=== PATIENT | female | born 1975 | race African-American/Black ===

== ENCOUNTER 2018-08-01 10:53 | Observation (INO) | payer BC, OTHER ==
[2018-08-01 11:33] LABS: #Basophils 0.1 thou/uL (0.0-0.2); #Eosinphils 0.1 thou/uL (0.0-0.7); #Lymphocytes 2.1 thou/uL (1.20-3.40); #Monocytes 0.7 thou/uL (0.11-0.59); #Neutrophils 4.2 thou/uL (1.40-6.50); %Eosinophils 1.8 % (0.0-10.0); %Lymphocytes 29.2 % (21.0-51.0); %Monocytes 9.3 % (0.0-10.0); %Neutrophils 58.7 % (42.0-75.0); Hemoglobin 13.8 g/dL (12.0-16.0); Mean Corpuscular HGB CONC 31.5 g/dL (32.0-36.0); Mean Corpuscular Volume 79.5 fL (78.0-98.0); Mean Platelet Volume 9.1 fL (7.4-10.4); Platelet Count 275 thou/uL (130-400); RBC Distribution Width 11.5 % (11.5-14.5); Red Blood Cell (RBC) Count 5.51 mill/uL (4.20-5.40); White Blood Cell (WBC) Count 7.2 thou/uL (4.8-10.8)
[2018-08-01 12:02] LABS: CKMB 0.6 ng/mL (0-6.6); Troponin I Less than 0.010 ng/mL (< 0.028)
--- NOTE | 2018-08-01 12:22 | RAD ---
PORTABLE CHEST 1 VIEW: Date: 08/01/18 Time: 1203 hours HISTORY: Chest pain, shortness of breath, and fatigue. FINDINGS: The heart size is normal. There is elevation of the left hemidiaphragm. No focal areas of consolidati on, pneumothoraces, or pleural effusions are seen. IMPRESSION: No radiographic evidence of acute cardiopulmonary process. POS: [facility]
[2018-08-01 13:12] LABS: Albumin 4.2 g/dL (3.5-5.0)
[2018-08-01 13:13] LABS: Chloride 102 mmol/L (98-107); Potassium 4.5 mmol/L (3.5-5.1)
[2018-08-01 13:14] LABS: Calcium 9.8 mg/dL (7.8-10.44); Sodium 134 mmol/L (136-145)
[2018-08-01 13:15] LABS: Globulin 3.9 g/dL (2.4-3.5); Glucose 271 mg/dL (70-105); Protein, Total 8.1 g/dL (6.0-8.3)
[2018-08-01 13:16] LABS: Anion Gap 13 mmol/L (10-20); Carbon Dioxide 24 mmol/L (22-29)
[2018-08-01 13:17] LABS: Alkaline Phosphatase 89 U/L (40-150); Bilirubin, Total 0.7 mg/dL (0.2-1.2)
[2018-08-01 13:18] LABS: Calc. Creatinine Clearance 0 mL/min (70-130); Estimated GFR-MDRD 90
[2018-08-01 13:19] LABS: BUN (Urea Nitrogen) 10 mg/dL (7.0-18.7)
[2018-08-01 13:20] LABS: AST (SGOT) 13 U/L (5-34)
[2018-08-01 13:21] LABS: ALT (SGPT) 15 U/L (8-55); CK (CPK) 78 U/L (29-168)
[2018-08-01 15:01] LABS: Troponin I Less than 0.010 ng/mL (< 0.028)
[2018-08-01] MEDS ORDERED: Insulin Glargine 15 UNITS in Pre-Filled Syringe 1 EACH SC SCH (16:08)
[2018-08-01] MEDS ORDERED: Dextrose 5% in Water 1,000 ML IV PRN (16:08)
[2018-08-01] MEDS ORDERED: HumaLOG 300 UNITS/3 ML VIAL SC PRN ×2 (16:08)
[2018-08-01] MEDS ORDERED: Dextrose 50% Abboject 50 ML SYRINGE SLOW IVP PRN (16:08)
[2018-08-01] MEDS ORDERED: Acetaminophen 325 MG TAB PO PRN (16:08)
[2018-08-01] MEDS ORDERED: Nitroglycerin 0.4 MG TAB (25 Tab Bottle) PO PRN (16:08)
[2018-08-01] MEDS ORDERED: Guaifenesin DM 100-10/5 ML UDCUP PO PRN (16:08)
[2018-08-01 16:32] LABS: Hemoglobin A1c 8.9 % (4.0-6.0)
[2018-08-01 16:35] LABS: Iron 123 ug/dL (50-170); Iron Binding Capacity, Total 395 mcg/dL (265-497)
[2018-08-01 17:52] VITALS: BMI 27.1
[2018-08-01 18:21] LABS: Pregnancy Test - Urine (BHCG) Negative (Negative); Pregu Control Background? CLEAR/WHITE (CLR/WHITE); Pregu Control Bar Appear? YES (CONTROL BAR); Specific Gravity 1.015 (1.002-1.036)
[2018-08-01 18:50] LABS: Troponin I Less than 0.010 ng/mL (< 0.028)
--- NOTE | 2018-08-01 20:49 | HP ---
REASON FOR ADMISSION: Chest pain, upper respiratory infection, uncontrolled diabetes. HISTORY OF PRESENT ILLNESS: The patient gives history of chest pain which was left-sided off and on from last 2 days. This has been coming on irrespective of exertion. She has had radiation of this pain to left upper extremity. Each episode of chest pain last 15-20 minutes and goes away by itself. The patient has shortness of breath associated with these chest pains. Two weeks back, patient had upper respiratory infection and from then has been feeling very fatigued. No complaints of cough or expectoration as such. PAST MEDICAL/SURGICAL HISTORY: Diabetes mellitus type 2 from last 5 years, dyslipidemia, has had fibroids removed in the past. CURRENT MEDICATIONS: Glimepiride 8 mg daily, pravastatin 20 mg daily. ALLERGIES: AMOXICILLIN. The patient is just intolerant to metformin not allergic. PERSONAL HISTORY: Does not abuse alcohol or drugs. No history of smoking. FAMILY HISTORY: Both parents are living and both have diabetes. REVIEW OF SYSTEMS: The following complete review of systems was negative, unless otherwise mentioned in the HPI or below: Constitutional: Weight loss or gain, ability to conduct usual activities. Skin: Rash, itching. Eyes: Double vision, pain. ENT/Mouth: Nose bleeding, neck stiffness, pain, tenderness. Cardiovascular: Palpitations, dyspnea on exertion, orthopnea. Respiratory: Shortness of breath, wheezing, cough, hemoptysis, fever or night sweats. Gastrointestinal: Poor appetite, abdominal pain, heartburn, nausea, vomiting, constipation, or diarrhea. Genitourinary: Urgency, frequency, dysuria, nocturia. Musculoskeletal: Pain, swelling. Neurologic/Psychiatric: Anxiety, depression. Allergy/Immunologic: Skin rash, bleeding tendency. CODE STATUS: FULL. PHYSICAL EXAMINATION: GENERAL: The patient is a 42-year-old female who is currently not in any acute distress. VITAL SIGNS: Blood pressure 160/94, pulse is 98 per minute, respiratory rate is 20 per minute, temperature 97.6 degrees Fahrenheit, saturating 97% on room air. NECK: Supple, no elevated JVD. HEENT: Extraocular muscles intact. Pupils reacting to light. Oral cavity mucous membranes are moist. No exudates or congestion. CARDIOVASCULAR: S1, S2 heard. Regular rhythm. RESPIRATORY: Air entry 1+ bilateral. Scattered rhonchi plus no rales or wheezes. ABDOMEN: Soft, bowel sounds heard. No tenderness, rigidity or guarding. EXTREMITIES: No peripheral edema or calf tenderness. VASCULAR SYSTEM: Peripheral pulses 2+ bilateral, no ischemic ulcerations or gangrene. CENTRAL NERVOUS SYSTEM: No gross focal deficits noted. Patient is alert, awake , oriented well. PSYCHIATRIC: The patient's mood is euthymic. No hallucinations or delusions. LABORATORY AND X-RAY FINDINGS: White count of 7, H and H 13 and 43, platelet count 275, MCV 79, BUN is 10, creatinine 0.8, serum glucose 271. Troponin x2 is negative. Albumin is 4.2. Chest x-ray done shows no acute cardiopulmonary abnormalities. EKG done shows low voltage, normal sinus rhythm at 97 beats per minute. CLINICAL IMPRESSION AND PLAN: The patient will be under observation on telemetry for chest pain, rule out acute coronary syndrome. Two sets of cardiac enzymes have been negative. She will be on acute coronary syndrome evidence based protocol and will obtain a nuclear stress test in the morning. Her diabetes is uncontrolled. The patient has been using only glimepiride and takes metformin on an as needed basis. We will give her 15 units of Lantus one dose now and see how she maintains her sugar and fingerstick glucose in the morning. We will place her on full dose aspirin, lisinopril 5 mg daily in view of her current blood pressures and for renal protection in view of her diabetes. We will continue her Pravachol. test will be obtained. The patient has low MCV and we will obtain ferritin levels. Albuterol nebulizer q.6 hours, Mucinex and Tessalon likely due to a post-viral syndrome with shortness of breath and fatigue. X-ray does not show any signs of pericardial effusion. Nevertheless, we will obtain echo with Doppler in view of her worsening fatigue, shortness of breath. 2 weeks upper respiratory infection to rule out pericarditis versus pericardial effusion. MTDD
[2018-08-01] MEDS: Famotidine 20 MG TAB PO SCH (20:54)
[2018-08-01] MEDS: Benzonatate 100 MG CAP PO SCH (20:54)
[2018-08-01] MEDS: guaiFENesin ER 600 MG TAB PO SCH (20:54)
[2018-08-01] MEDS ORDERED: Simvastatin 5 MG TAB PO SCH (21:00)
[2018-08-02] MEDS: Albuterol Sulfate 1.25 MG/3 ML NEB NEB SCH ×2 (00:41→06:32)
[2018-08-02 04:11] VITALS: TEMP 98.4
[2018-08-02 05:09] LABS: #Basophils 0.1 thou/uL (0.0-0.2); #Eosinphils 0.2 thou/uL (0.0-0.7); #Lymphocytes 2.5 thou/uL (1.20-3.40); #Monocytes 0.8 thou/uL (0.11-0.59); #Neutrophils 4.3 thou/uL (1.40-6.50); %Eosinophils 2.3 % (0.0-10.0); %Lymphocytes 32.1 % (21.0-51.0); %Monocytes 10.4 % (0.0-10.0); %Neutrophils 54.2 % (42.0-75.0); Hemoglobin 12.9 g/dL (12.0-16.0); Mean Corpuscular HGB CONC 31.7 g/dL (32.0-36.0); Mean Corpuscular Hemoglobin 25.3 pg (27.0-31.0); Platelet Count 257 thou/uL (130-400); RBC Distribution Width 11.6 % (11.5-14.5); Red Blood Cell (RBC) Count 5.07 mill/uL (4.20-5.40); White Blood Cell (WBC) Count 7.9 thou/uL (4.8-10.8)
[2018-08-02 05:28] LABS: Anion Gap 11 mmol/L (10-20); BUN (Urea Nitrogen) 16 mg/dL (7.0-18.7); Calc. Creatinine Clearance 109 mL/min (70-130); Calcium 9.3 mg/dL (7.8-10.44); Carbon Dioxide 21 mmol/L (22-29); Cardiac Risk 3.3 (Less than 4.5); Chloride 104 mmol/L (98-107); Cholesterol 90 mg/dl (< 200 Desired); Estimated GFR-MDRD Greater than 90; Glucose 272 mg/dL (70-105); HDL Cholesterol 27 mg/dL (>60 Neg Risk); LDL Cholesterol, Calculated 41 mg/dL; Potassium 4.1 mmol/L (3.5-5.1); Sodium 132 mmol/L (136-145); Triglycerides 108 mg/dL (Less than 150)
[2018-08-02] MEDS ORDERED: Glimepiride 4 MG TAB PO SCH (08:00)
[2018-08-02] MEDS ORDERED: Enoxaparin Sodium 40 MG/0.4 ML SYRINGE SC SCH (09:00)
[2018-08-02] MEDS ORDERED: Lisinopril 5 MG TAB PO SCH (09:00)
[2018-08-02] MEDS ORDERED: Aspirin 325 MG TAB PO SCH (09:00)
[2018-08-02] MEDS: Benzonatate 100 MG CAP PO SCH ×2 (11:09→14:55)
[2018-08-02] MEDS: Famotidine 20 MG TAB PO SCH (11:10)
[2018-08-02] MEDS: guaiFENesin ER 600 MG TAB PO SCH (11:10)
[2018-08-02 11:12] VITALS: BP 134/69
--- NOTE | 2018-08-02 11:23 | PDOC.PN ---
- Subjective Encounter Start Date: 08/02/18 Encounter Start Time: 11:00 Subjective: no further chest pain or sob -: feels better -: just finished her stress test - Objective Resuscitation Status: Resuscitation Status FULL:Full Resuscitation MAR Reviewed: Yes Vital Signs & Weight: Vital Signs (12 hours) Temp Pulse Resp BP BP Pulse Ox 08/02/18 11:11 87 16 134/69 95 08/02/18 07:44 98.4 F 75 16 111/62 95 08/02/18 03:58 98.4 F 72 18 125/76 97 08/01/18 23:45 98.6 F 81 16 123/70 95 Weight Weight 168 lb I&O: 08/01/18 08/02/18 08/03/18 06:59 06:59 06:59 Intake Total 480 Output Total 1000 Balance -520 Result Diagrams: 08/02/18 04:49 08/02/18 04:49 Additional Labs: Accuchecks 08/02/18 08/01/18 08/01/18 06:30 20:43 17:40 POC Glucose 265 H 252 H 224 H Phys Exam - Physical Examination HEENT: PERRLA, moist MMs Neck: no JVD, supple Respiratory: no wheezing, no rales Cardiovascular: RRR, no significant murmur Gastrointestinal: soft, non-tender, positive bowel sounds Musculoskeletal: no edema, pulses present Neurological: non-focal, moves all 4 limbs Psychiatric: normal affect, A&O x 3 Dx/Plan (1) Chest pain Code(s): R07.9 - CHEST PAIN, UNSPECIFIED Status: Acute (2) DM (diabetes mellitus), type 2, uncontrolled Code(s): E11.65 - TYPE 2 DIABETES MELLITUS WITH HYPERGLYCEMIA Status: Chronic Qualifiers: Glycemic state: with hyperglycemia Qualified Code(s): E11.65 - Type 2 diabetes mellitus with hyperglycemia (3) HTN (hypertension) Code(s): I10 - ESSENTIAL (PRIMARY) HYPERTENSION Status: Chronic Qualifiers: Hypertension type: essential hypertension Qualified Code(s): I10 - Essential (primary) hypertension - Plan hemostable -: may dc home if stress test is normal -: add glipizide to glimepride for dm * . Review of Systems - Medications/Allergies Allergies/Adverse Reactions: Allergies Allergy/AdvReac Type Severity Reaction Status Date / Time amoxicillin Allergy Verified 08/01/18 16:41 metformin Allergy Verified 08/01/18 16:41 Medications: Current Medications Acetaminophen (Tylenol) 650 mg PO Q4H PRN PRN Reason: Headache/Fever or Pain Albuterol Sulfate (Albuterol Sulfate) 1.25 mg NEB [id number] [facility] Last Admin: 08/02/18 06:32 Dose: Not Given Aspirin (Aspirin) 325 mg PO DAILY [facility] Last Admin: 08/02/18 11:09 Dose: 325 mg Benzonatate (Tessalon) 100 mg PO TID [facility] Last Admin: 08/02/18 11:09 Dose: Not Given Dextrose/Water (Dextrose 50%) 25 gm SLOW IVP PRN PRN PRN Reason: Hypoglycemia Enoxaparin Sodium (Lovenox) 40 mg SC 0900 [facility] Last Admin: 08/02/18 11:09 Dose: Not Given Famotidine (Pepcid) 20 mg PO BID [facility] Last Admin: 08/02/18 11:10 Dose: Not Given Glimepiride (Amaryl) 4 mg PO QAM-WM [facility] Last Admin: 08/02/18 11:09 Dose: 4 mg Glipizide (Glucotrol) 5 mg PO BID-[facility] Glucagon (Glucagon) 1 mg IM PRN PRN PRN Reason: Hypoglycemia Guaifenesin (Mucinex) 600 mg PO Q12HR [facility] Last Admin: 08/02/18 11:10 Dose: Not Given Guaifenesin/Dextromethorphan (Robitussin Dm) 15 ml PO Q4H PRN PRN Reason: Cough Dextrose/Water (D5w) 1,000 mls @ 0 mls/hr IV .Q0M PRN PRN Reason: Hypoglycemia Insulin Human Lispro (Humalog) 0 units SC .AGGRESSIVE SLIDING PRN PRN Reason: Aggressive Correctional Scale Insulin Human Lispro (Humalog) 0 units SC .BEDTIME SLIDING SC PRN PRN Reason: Bedtime Correctional Scale Lisinopril (Zestril) 5 mg PO DAILY [facility] Last Admin: 08/02/18 11:11 Dose: Not Given Nitroglycerin (Nitrostat) 0.4 mg PO Q5MIN PRN PRN Reason: Chest Pain Simvastatin (Zocor) 10 mg PO HS [facility] Last Admin: 08/01/18 20:54 Dose: 10 mg
--- NOTE | 2018-08-02 12:32 | NM ---
CARDIAC SPECT: HISTORY: A 42-year-old black female with chest pain, diabetes, and dyslipidemia. TECHNIQUE: A myocardial perfusion scan was performed following the single isotope one day protocol with techneti um 99m sestamibi, and 11 millicuries was injected intravenously for the rest exam, followed by 30 mil licuries for the stress study. Pharmacologic stress with Lexiscan was monitored and interpreted by De Wall, Nurse Practitioner. FINDINGS: No fixed or reversible defects are seen. GATED SPECT LVEF: 75% WALL MOTION: Normal. IMPRESSION: No evidence of reversible ischemia. POS: [facility]
--- NOTE | 2018-08-02 14:33 | DIS ---
DATE OF ADMISSION: 08/01/2018 DATE OF DISCHARGE: 08/02/2018 DISCHARGE DISPOSITION: To home. PRIMARY DISCHARGE DIAGNOSIS: Chest pain, which is noncardiac. SECONDARY DISCHARGE DIAGNOSES: Diabetes mellitus, type 2; dyslipidemia; mild hypertension. PROCEDURES DONE DURING HOSPITALIZATION: Three sets of cardiac enzymes were negative. Nuclear stress test done showed an EF of 75% with normal wall motion , no evidence of reversible ischemia. Chest x-ray done showed no acute cardiopulmonary abnormalities. H and H 12 and 40, MCV was 80, total cholesterol 90, triglycerides 108, LDL 41. Hemoglobin A1c was 8.9. DISCHARGE MEDICATIONS: Glimepiride 8 mg p.o. daily, glipizide 5 mg twice daily , lisinopril 5 mg daily, Pravachol 20 mg p.o. at bedtime. ALLERGIES: Allergic to AMOXICILLIN and METFORMIN. DISCHARGE PLAN: Patient to follow up with primary care physician in 1 week. She is also advised to check fingerstick glucose twice daily and record on a sheet of paper to follow up with primary care physician in 10 days for any changes in her medications. BRIEF COURSE DURING HOSPITALIZATION: The patient initially came to ER with complaints of off and on chest pain. In view of risk factors, the patient was placed under observation on telemetry. Three sets of troponins were negative. Nuclear stress test done showed no reversible ischemia. She has remained hemodynamically stable with no further chest pains. Her diabetes was uncontrolled and has been counseled to take glipizide in addition to glimepiride that she is taking. She needs to check fingerstick glucose twice daily and record t of/u with her PCP for changes in her current meds for dm. She is, otherwise, hemodynamically stable and will be shortly discharged home. Please see a [id number] documentation [facility] for the day of discharge. [facility]ITAL[facility]ran[facility]
[2018-08-02] MEDS ORDERED: Regadenoson 0.4 MG/5 ML SYRINGE ONE (15:10)
[2018-08-02] MEDS ORDERED: glipiZIDE 5 MG TAB PO SCH (16:30)
--- NOTE | 2018-08-02 17:00 | EKG ---
Test Reason : CP Blood Pressure : / mmHG Vent. Rate : 092 BPM Atrial Rate : 092 BPM P-R Int : 140 ms QRS Dur : 072 ms QT Int : 356 ms P-R-T Axes : 064 020 081 degrees QTc Int : 440 ms Normal sinus rhythm Nonspecific T wave abnormality Abnormal ECG Confirmed by PETR RANDALL, DR. Carrillo (4) on 08/02/2018 5:00:21 PM Referred By: BARTH Confirmed By:DR. Gerardo HUMPHREYS MD
--- NOTE | 2018-08-02 17:02 | EKG ---
Test Reason : Blood Pressure : / mmHG Vent. Rate : 079 BPM Atrial Rate : 079 BPM P-R Int : 108 ms QRS Dur : 064 ms QT Int : 338 ms P-R-T Axes : 022 031 092 degrees QTc Int : 387 ms Sinus rhythm with short DC Nonspecific T wave abnormality Abnormal ECG Confirmed by PETR RANDALL, DR. Carrillo (4) on 08/02/2018 5:02:03 PM Referred By: Confirmed By:DR. Gerardo HUMPHREYS MD
--- NOTE | 2018-08-02 17:03 | EKG ---
Test Reason : Blood Pressure : / mmHG Vent. Rate : 074 BPM Atrial Rate : 074 BPM P-R Int : 144 ms QRS Dur : 072 ms QT Int : 396 ms P-R-T Axes : 056 031 076 degrees QTc Int : 439 ms Normal sinus rhythm Nonspecific T wave abnormality Abnormal ECG Confirmed by PETR RANDALL, DR. Carrillo (4) on 08/02/2018 5:03:17 PM Referred By: Confirmed By:DR. Gerardo HUMPHREYS MD
== END 2018-08-02 15:01 | disposition home or self-care (01) ==
LOC: ERS 10:53 → 2SW 17:28
PROVIDERS: ADMIT Internal Medicine; ATTEND Internal Medicine
DX: R07.89 Other chest pain (principal); R06.02 Shortness of breath; E11.65 Type 2 diabetes mellitus with hyperglycemia; E78.5 Hyperlipidemia, unspecified; I10 Essential (primary) hypertension; Z79.84 Long term (current) use of oral hypoglycemic drugs; Z79.899 Other long term (current) drug therapy; Z88.0 Allergy status to penicillin; Z88.8 Allergy status to other drugs, medicaments and biological substances
CPT/HCPCS: 36415; 36416; 71045; 78452; 80048; 80053; 80061; 81025; 82553; 82728; 83036; 83540; 83550; 84484; 85025; 87633; 93005; 93017; 93306; A9500; G0378; J1650; J2785

== ENCOUNTER 2019-02-26 10:00 | Inpatient (IN) | payer BC ==
[2019-02-26 11:31] VITALS: BMI 24.3
[2019-02-27] MEDS ORDERED: CeleCOXIB 100 MG CAP ONE ×2 (06:18→06:19)
[2019-02-27] MEDS ORDERED: Gabapentin 300 MG CAP ONE ×2 (06:18)
[2019-02-27] MEDS ORDERED: Famotidine/PF 20 mg/2ml Vial ONE (06:18)
[2019-02-27] MEDS ORDERED: Lidocaine 2% Jelly 5 ML TUBE ONE (06:43)
[2019-02-27] MEDS ORDERED: Fentanyl 250 MCG/5 ML VIAL ONE (06:43)
[2019-02-27] MEDS ORDERED: Bupivacaine HCl 0.5%/Epinephrine 1:200,000/PF 30 ml Vial ONE (06:45)
[2019-02-27] MEDS ORDERED: Clindamycin/D5W 900 mg/50 ml Premix Bag ONE (07:14)
[2019-02-27] MEDS ORDERED: Levofloxacin 500 mg/D5W 100 ml Premix Bag ONE (07:15)
[2019-02-27] MEDS ORDERED: Insulin Regular 300 UNITS/3 ML VIAL ONE (09:31)
[2019-02-27] MEDS ORDERED: diphenhydrAMINE 25 MG CAP PO PRN (10:42)
[2019-02-27] MEDS ORDERED: Promethazine HCl 25 MG/ML VIAL IM PRN ×2 (10:42→10:54)
[2019-02-27] MEDS ORDERED: Acetaminophen 325 MG TAB PO PRN (10:42)
[2019-02-27] MEDS ORDERED: Ondansetron PF 4 MG/2 ML Vial IVP PRN (10:42)
[2019-02-27] MEDS ORDERED: Simethicone Chewable 80 MG TAB PO PRN (10:42)
[2019-02-27] MEDS ORDERED: Bisacodyl 10 MG SUPP PR PRN (10:42)
[2019-02-27] MEDS ORDERED: HYDROcodone/Acetaminophen 5/325 mg Tablet PO PRN (10:42)
[2019-02-27] MEDS ORDERED: Dextrose 50% Abboject 50 ML SYRINGE SLOW IVP PRN (10:45)
[2019-02-27] MEDS ORDERED: Dextrose 5% in Water 1,000 ML IV PRN (10:45)
[2019-02-27] MEDS ORDERED: Ondansetron HCl/PF 4 MG/2 ML Vial IVP PRN (10:54)
[2019-02-27] MEDS ORDERED: Promethazine HCl 25 MG/ML VIAL SLOW IVP PRN (10:54)
[2019-02-27] MEDS ORDERED: Fentanyl 100 MCG/2 ML VIAL ONE ×3 (11:18→11:52)
[2019-02-27] MEDS ORDERED: Fentanyl 100 MCG/2 ML VIAL SLOW IVP PRN (14:04)
[2019-02-27] MEDS ORDERED: Ketorolac Tromethamine 30 MG/ML VIAL ONE (14:19)
[2019-02-27] MEDS ORDERED: ePHEDrine 50 MG/ML VIAL ONE (14:19)
[2019-02-27] MEDS ORDERED: Ondansetron PF 4 MG/2 ML Vial ONE (14:19)
[2019-02-27] MEDS ORDERED: PHENYLEPHRINE-NS 100 MCG/ML 10 ML SYRINGE ONE (14:19)
[2019-02-27] MEDS ORDERED: Glycopyrrolate 0.2 MG/ML 5 ML SYRINGE ONE (14:19)
[2019-02-27] MEDS ORDERED: Rocuronium Bromide 10 MG/ML (10ML VIAL) ONE (14:19)
[2019-02-27] MEDS ORDERED: PROPOFOL 200 MG/20 ML VIAL ONE (14:19)
[2019-02-27] MEDS ORDERED: Dexamethasone 20 MG/5 ML VIAL ONE (14:19)
[2019-02-27] MEDS ORDERED: Lidocaine 1% PF 5 ML VIAL ONE (14:19)
[2019-02-27] MEDS ORDERED: Acetaminophen 1,000 MG in Premix Bag 1 BAG IVPB PRN (14:30)
--- NOTE | 2019-02-27 15:40 | OP ---
DATE OF PROCEDURE: 02/27/2019 PREOPERATIVE DIAGNOSES: 1. Symptomatic uterine fibroids. 2. Pelvic pain. 3. Menorrhagia. POSTOPERATIVE DIAGNOSES: 1. Symptomatic uterine fibroids. 2. Pelvic pain. 3. Menorrhagia. PROCEDURES PERFORMED: Robotic assisted total laparoscopic hysterectomy, bilateral salpingectomy, and extracorporeal morcellation. TALENT PROGRAM MANAGER SURGEON: Jamir Roberts DO, MS ANESTHESIA: General endotracheal. ESTIMATED BLOOD LOSS: 100 mL. IVF: 1200 mL crystalloid. URINE OUTPUT: 410 mL of clear urine. COMPLICATIONS: None. DRAINS: Roque catheter. PATHOLOGY: Uterus, cervix, bilateral fallopian tubes. FINDINGS: On exam under anesthesia, a mobile rightward deviating multinodular uterus was noted to the level of the umbilicus. On intraabdominal survey, the same findings were observed and there was good mobility to the uterus. However, the ovaries were normal appearing. The right ovary had some filmy adhesions to the right pelvic sidewall. The fallopian tubes were normal appearing, as well as the upper abdomen. OPERATIVE TECHNIQUE: The patient was taken to the operating room, where general anesthesia was obtained without difficulty. The patient was prepped and draped in a sterile fashion in the dorsal lithotomy position. A Roque catheter was placed in the bladder. A speculum was placed in the vagina and the anterior lip of the cervix was grasped with a single-tooth tenaculum. The uterus then sounded to 12 cm. The cervix was progressively dilated with Daryl dilators and the remaining manipulator was assembled with a 12 cm tip and 4 cm colpotomizer ring. The JERRY tip was inserted to the uterine fundus. Balloon was inflated. The speculum and tenaculum were removed out of the vagina, and the colpotomizer ring was advanced to fit snugly around the cervix. The legs were placed in low lithotomy. Attention was turned to the abdomen. 0.5% Marcaine with epi was infiltrated into the umbilicus just superior to this. A 2.5 cm skin incision was made from the umbilicus in cephalad. Kochers were placed on the subcutaneous tissue and the fascia was dissected out with Julian and then sharply incised with the Julian scissors. This was extended also to approximately 2.5 cm. The peritoneum was bluntly entered into. The Mini Simone was placed into the incision and cinched down. The medium 14 cm applied medical bag was cinched down with silk ties on each end of the bag and this was placed into the upper abdomen. The camera port was then placed into the Mini GelPOINT. The Mini GelPOINT was affixed on top of the Simone and pneumoperitoneum was established. Abdominal placement was confirmed with the robotic camera. Steep Trendelenburg was obtained. Right and left lower quadrant 8 mm robotic trocars were placed under direct visualization after infiltrating with anesthetic. An 11 mm right upper quadrant port was placed under direct visualization for the assistant professor of nursing port. The uterus was then manipulated around. Photo documentation was performed. The left fallopian tube was identified, grasped and elevated, and a window was made in the mesosalpinx with the scissors. The medial portion of the fallopian tube was clamped across, cauterized with the fenestrated and transected and removed out of the abdomen. The utero-ovarian on the left side was cauterized multiple times with the fenestrated and transected with the scissors. The round ligament was difficult to identify on the left side secondary to fibroids deviating the uterus, so markedly over to the patient's right side. Therefore, careful layering out of the anterior leaf of the broad ligament was performed using the fenestrated to undermine and the scissors to incise. The uterus was so deviated that the ovary was pulled down close to the colpotomizer ring. At this time, the ureter was identified transperitoneally and to ensure this was not pulled up close to the colpotomizer ring and it was running in the lateral pelvic sidewall. The peritoneum was dissected as much as safely and the bladder flap was started dropping down the vesicouterine peritoneum from the uterine pedicle, as well as from the pubocervical fascia by incising as well as blunt dissection with the scissors using compression spread technique. Attention was turned to the right side, where the tenaculum was used to the assistant professor of nursing port to deviate the uterus over to the patient's left side for visualization on the right side. The fallopian tube was identified, grasped, and the mesosalpinx was incised after cautery and then transected across and removed into the posterior cul-de-sac. The utero-ovarian was also cauterized multiple times and transected. The round ligament on the right was clamped in the middle, cauterized, transected, and the mesovarium was also dissected through with the scissors. The ovary was dropped down by incising the posterior peritoneum. The ureter was noted on the right side as well running laterally in the pelvic sidewall and the anterior leaf of the broad ligament was taken down to the level of the bladder flap that was already incised. The retroperitoneum was dissected through using blunt dissection with fenestrated. The uterine vessels were skeletonized on the right side with the scissors and clamped and cauterized after revisualizing the ureter, and this was directly visible after dropping down the posterior leaf into the pelvic sidewall. Scoring technique was used on the pubocervical fascia to distally dissect the bladder adventitia below the level of the colpotomizer ring. The left uterine pedicle was then skeletonized with the scissors and cauterized and transected. Anterior colpotomy was performed at that time and this was carried around to the right side that the fenestrated was slipped underneath the lateral apex and cauterized to ensure hemostasis. The uterine pedicle and cardinal ligament were then incised on the right side and then taken around posteriorly, where the posterior colpotomy was completed. The remainder of the colpotomy was completed from the patient's left side as the uterus was difficult to manipulate in an anteverted position secondary to the large fibroids. Once the uterus was completely transected, the manipulator was removed out of the vagina and the uterus was placed into the upper abdomen. The bladder was then backfilled and the bladder was noted to have no defects or extravasation of saline. The bladder was then decompressed and Roque was hooked up. The pelvis was copiously irrigated and suctioned. The cuff was noted to be hemostatic. The scissors were traded out for the needle public transit trolley driver and STRATAFIX suture was passed into the abdomen and the cuff was closed with 2-0 STRATAFIX suture. The suture did break two different times. Therefore, a V-Loc was called for and completed cuff closure incorporating vaginal mucosa and posterior peritoneum in each bite and the cuff closure was noted to be excellent. The needle was removed out of the abdomen. The fallopian tube was also identified at this time and removed out of the abdomen. Irrigation was again performed of the vaginal cuff. Low pressure check was performed. Hemostasis was noted to be excellent. The bag was then brought down from the upper abdomen into the pelvis, as well as the uterine specimen was. The silk ties cinching the bag down were cut and removed out of the abdomen, and the uterus was delivered into the bag. At that time, the bag was brought out of the Mini GelPOINT and the robot was then docked. The bag was brought through the Mini Simone and the Simone was removed and then placed on the interior of the bag. The uterus was then grasped with a Bolivar clamp and the uterus was morcellated in a contained fashion using a C incision technique and this took approximately 45 additional minutes. Once the entire specimen had been removed, the mini Simone and bag were removed from the abdomen. There were no lacerations into the bag. The fascia was marked with a Karla clamp and then closed with a 0 PDS in a running fashion. With excellent reapproximation, the subcutaneous tissue was irrigated and cauterized of any bleeders and the skin was closed with 4-0 Monocryl in subcuticular fashion. Dermabond was applied, as well as the pressure dressing. The vaginal mucosa was checked. There were no injury to the vaginal mucosa and there was no active bleeding. All instruments were removed out of the vagina. The patient tolerated the procedure well. Sponge and needle counts were correct x2. The patient was taken to Recovery in stable condition. The patient received Levaquin and clindamycin prior to the procedure. Job ID: [id number]
[2019-02-27] MEDS: Ketorolac Tromethamine 30 MG/ML VIAL IVP SCH ×3 (15:57→21:44)
[2019-02-27] MEDS: Lactated Ringer's 1,000 ML IV SCH (16:05)
[2019-02-27] MEDS: Insulin Regular 300 UNITS/3 ML VIAL SC PRN ×2 (16:11→21:51)
[2019-02-27] MEDS: HYDROcodone/Acetaminophen 5/325 mg Tablet PO PRN (20:08)
[2019-02-27] MEDS: Zolpidem Tartrate 5 MG TAB PO PRN (21:43)
[2019-02-27] MEDS: Docusate Calcium (SURFAK) 240 MG CAP PO SCH (21:43)
[2019-02-28] MEDS: HYDROcodone/Acetaminophen 5/325 mg Tablet PO PRN (00:04)
[2019-02-28] MEDS: Zolpidem Tartrate 5 MG TAB PO PRN (00:04)
[2019-02-28] MEDS: Lactated Ringer's 1,000 ML IV SCH (04:53)
[2019-02-28] MEDS: Ketorolac Tromethamine 30 MG/ML VIAL IVP SCH (04:58)
[2019-02-28 05:02] LABS: Hemoglobin 11.9 g/dL (12.0-16.0); Mean Corpuscular HGB CONC 31.1 g/dL (32.0-36.0); Mean Corpuscular Hemoglobin 25.8 pg (27.0-31.0); Mean Corpuscular Volume 82.9 fL (78.0-98.0); Mean Platelet Volume 8.6 fL (7.4-10.4); Platelet Count 291 thou/uL (130-400); Red Blood Cell (RBC) Count 4.62 mill/uL (4.20-5.40); White Blood Cell (WBC) Count 13.1 thou/uL (4.8-10.8)
[2019-02-28] MEDS ORDERED: Glimepiride 4 MG TAB PO SCH (08:00)
[2019-02-28 08:04] VITALS: BP 112/58; TEMP 98.3
--- NOTE | 2019-02-28 08:17 | PDOC.EVN ---
Event Note - Event Note Event Note: POD1 S: No complaints, pain controlled, ambulating, tolerating po and voiding. O: VSSAF NAD RRR CTAB S/appttp/ND Inc c/d/i No e/c/c Hgb 11.9 postop A: POD1 s/p robotic TLH P: Met all postop milestones, postop teaching and DC home with FU in 2 weeks
[2019-02-28] MEDS: Docusate Calcium (SURFAK) 240 MG CAP PO SCH (08:32)
--- NOTE | 2019-02-28 11:25 | OP ---
DATE OF PROCEDURE: 02/27/2019 PREOPERATIVE DIAGNOSIS: Soft tissue mass, left upper abdomen. POSTOPERATIVE DIAGNOSIS: Soft tissue mass, left upper abdomen. PROCEDURE PERFORMED: Excision of soft tissue mass, left abdomen 4 cm. ANESTHESIA: General. ESTIMATED BLOOD LOSS: Minimal. COMPLICATIONS: None. SPECIMENS: Soft tissue mass. DESCRIPTION OF PROCEDURE: The patient was taken to the operating room and laid supine on the operating room table. After general anesthetic was obtained, her abdomen was prepped and draped in a sterile fashion. Transverse incision was made over the palpable abnormality in left upper quadrant. Sharp and blunt dissection were used to dissect out the soft tissue mass and sent to Path for final diagnosis. The wound was irrigated. Local anesthetic was applied. The wound was closed using 3-0 Vicryl, 4-0 Monocryl, and Dermabond. The case was then turned over to the gynecologic surgeons. Job ID: [id number]
[2019-03-04] MEDS ORDERED: Ibuprofen 800 MG TAB PO SCH (14:00)
== END 2019-02-28 11:40 | disposition home or self-care (01) | DRG 743 ==
LOC: SURG A 02-27 06:02 → EDSTATUS 02-27 10:00 → 3SE 02-27 13:46
PROVIDERS: ADMIT Student in an Organized Health Care Education/Training Program; ATTEND Student in an Organized Health Care Education/Training Program
PROC: 0UT94ZZ Resection of Uterus, Percutaneous Endoscopic Approach (ICD-10-PCS; principal; 2019-02-27)
PROC: 0UT74ZZ Resection of Bilateral Fallopian Tubes, Percutaneous Endoscopic Approach (ICD-10-PCS; 2019-02-27)
PROC: 0JB80ZZ Excision of Abdomen Subcutaneous Tissue and Fascia, Open Approach (ICD-10-PCS; 2019-02-27)
PROC: 8E0W4CZ Robotic Assisted Procedure of Trunk Region, Percutaneous Endoscopic Approach (ICD-10-PCS; 2019-02-27)
DX: D25.9 Leiomyoma of uterus, unspecified (principal); R10.2 Pelvic and perineal pain; D17.1 Benign lipomatous neoplasm of skin and subcutaneous tissue of trunk; Z88.1 Allergy status to other antibiotic agents; Z88.5 Allergy status to narcotic agent
CPT/HCPCS: 36415; 36416; 84703; 85027; 86850; 86900; 86901; 88304; 88307; J0131; J0670; J1815; J1885; J1956; J3010; J3490; S0028

== ENCOUNTER 2021-02-05 09:55 | Outpatient (CLI) | payer BC | END 2021-02-05 09:56 | disposition home or self-care (01) | LOC: BICRAD 09:55 | PROVIDERS: ATTEND Internal Medicine | DX: M25.511 Pain in right shoulder (principal); M25.512 Pain in left shoulder ==

== ENCOUNTER 2022-08-12 09:46 | Outpatient (CLI) | payer BC | END 2022-08-12 09:47 | disposition home or self-care (01) | LOC: SCSRAD 09:46 | PROVIDERS: ATTEND Internal Medicine | DX: M50.10 Cervical disc disorder with radiculopathy, unspecified cervical region (principal); M25.78 Osteophyte, vertebrae | CPT/HCPCS: 72040 ==

== ENCOUNTER 2022-08-18 11:09 | Outpatient (CLI) | payer BC | END 2022-08-18 11:10 | disposition home or self-care (01) | LOC: BICRAD 11:09 | PROVIDERS: ATTEND Internal Medicine | DX: C90.00 Multiple myeloma not having achieved remission (principal); D47.2 Monoclonal gammopathy | CPT/HCPCS: 77075 ==